=== PATIENT | male | born 1990 | race Caucasian/White ===

== ENCOUNTER 2020-09-16 16:24 | Outpatient (REF) | payer OTHER, SELFPAY ==
--- NOTE | ~2020-09-16 | XR_ITS ---
EXAMINATION: XR ANKLE, LEFT XR FOOT, LEFT CLINICAL INFORMATION: M77.52 - Other enthesopathy of left foot and ankle. COMPARISON: None. TECHNIQUE: 2 views left ankle, 2 views left foot, and a single combined lateral view of both ankle and foot in large [id number] are obtained. There are a total of 5 views. FINDINGS: The left ankle shows no fracture, dislocation or destructive process. The malleoli are intact and the ankle mortise is symmetric. No visible ankle capsular effusion. The retrocalcaneal recess is preserved. There are borderline posterior and plantar calcaneal spurs. Subtalar joint not well visualized, likely related to positioning. The midfoot and forefoot are unremarkable. There is no fracture, dislocation or arthropathy. XR/XR foot LT min 3V IMPRESSION: 1. Borderline posterior and plantar calcaneal spurs. 2. No fracture or destructive process. No focal joint narrowing or erosive change.
--- NOTE | ~2020-09-16 | XR_ITS ---
EXAMINATION: XR ANKLE, LEFT XR FOOT, LEFT CLINICAL INFORMATION: M77.52 - Other enthesopathy of left foot and ankle. COMPARISON: None. TECHNIQUE: 2 views left ankle, 2 views left foot, and a single combined lateral view of both ankle and foot in large [id number] are obtained. There are a total of 5 views. FINDINGS: The left ankle shows no fracture, dislocation or destructive process. The malleoli are intact and the ankle mortise is symmetric. No visible ankle capsular effusion. The retrocalcaneal recess is preserved. There are borderline posterior and plantar calcaneal spurs. Subtalar joint not well visualized, likely related to positioning. The midfoot and forefoot are unremarkable. There is no fracture, dislocation or arthropathy. XR/XR ankle LT 2V IMPRESSION: 1. Borderline posterior and plantar calcaneal spurs. 2. No fracture or destructive process. No focal joint narrowing or erosive change.
== END 2020-09-16 16:25 | disposition home or self-care (01) ==
LOC: HO.XRAY 16:24
PROVIDERS: PCP Hospitalist; Visit Provider Hospitalist
DX: M77.52 Other enthesopathy of left foot and ankle (principal)
CPT/HCPCS: 73600; 73630

== ENCOUNTER 2021-03-11 13:02 | Outpatient (REF) | payer OTHER, SELFPAY ==
--- NOTE | ~2021-03-11 | XR_ITS ---
EXAMINATION: XR KNEE, RIGHT CLINICAL INFORMATION: Pain COMPARISON: None TECHNIQUE: Four views of the right knee. FINDINGS: There is no evidence of acute fracture or dislocation of the right knee. No effusion is seen. Joint spaces are maintained. XR/XR knee RT 4V IMPRESSION: No significant bony abnormality of the right knee. No right knee effusion.
== END 2021-03-11 13:03 | disposition home or self-care (01) ==
LOC: HO.HMGCX 13:02
PROVIDERS: PCP Hospitalist; Visit Provider Hospitalist
DX: M25.561 Pain in right knee (principal)
CPT/HCPCS: 73564

== ENCOUNTER 2021-05-31 10:38 | Outpatient (REF) | payer OTHER, SELFPAY ==
[2021-05-31 11:31] LABS: MANUAL DIFF FLAG NO
[2021-05-31 11:41] LABS: Basophils Percent Auto 0.5 % (0-2); Eosinophils Absolute Auto 0.2 X10*3/uL (0.0-0.4); Eosinophils Percent Auto 2.8 % (0-4); Hemoglobin 15.9 g/dl (14.0-18.0); Imm Gran Abs Auto 0.02 X10*3/uL (0.00-0.03); Imm Gran Pct Auto 0.3 % (0.0-0.4); Lymphocytes Absolute Auto 1.4 X10*3/uL (1.2-4.9); Mean Corpuscular HGB Conc 33.8 g/dl (31.0-36.0); Mean Corpuscular Volume 88.7 fL (80-98); Mean Platelet Volume 10.4 fL (9.4-12.4); Monocytes Absolute Auto 0.4 X10*3/uL (0.1-1.2); Monocytes Percent Auto 6.6 % (2-11); Neutrophils Absolute Auto 4.5 X10*3/uL (2.0-8.3); Neutrophils Percent Auto 68.8 % (45-73); Platelet Count 207 X10*3/uL (160-400); Red Cell Distribution Width 13.4 % (11.0-16.0); White Blood Count 6.5 X10*3/uL (4.8-10.8)
[2021-05-31 12:18] LABS: Alanine Aminotransferase 39 U/L (0-40); Albumin Level 4.4 g/dL (3.5-5.0); Alkaline Phosphatase 95 U/L (39-117); Anion Gap 10 (12-20); Aspartate Amino Transferase 24 U/L (5-37); Blood Urea Nitrogen 12 mg/dL (9-16); Calcium 9.3 mg/dL (8.4-10.2); Carbon Dioxide 27 mmol/L (22-29); Chloride 105 mmol/L (96-108); Estimated Glomerular Filt Rate > 60; Glucose Random 95 mg/dL (60-115); Iron 123 mcg/dL (45-160); Percent Iron Saturation 41 % (15-50); Potassium 4.2 mmol/L (3.3-5.1); Sodium 138 mmol/L (135-145); Total Iron Binding Capacity 300 mcg/dL (228-428); Total Protein 6.9 g/dL (6.5-8.0); Unsaturated Iron Binding 177 ug/dL
[2021-05-31 12:26] LABS: Ferritin 147 ng/mL (20-250); Vitamin D 25-OH Total 30.6 ng/mL (>30)
[2021-05-31 12:42] LABS: Folate 8.5 ng/mL (> or = 4.0); Vitamin B12 537 pg/mL (200-900)
[2021-06-01 14:31] LABS: Calcium (PTHI) 9.3 mg/dL (8.6-10.3); PTHI 72 pg/mL (14-64)
[2021-06-04 17:33] LABS: Alpha-Tocopherol 8.6 mg/L (5.7-19.9); Beta-Gamma Tocopherol <1.0 mg/L (<=4.3)
[2021-06-05 00:51] LABS: Vitamin A 47 mcg/dL (38-98)
[2021-06-05 11:10] LABS: Vitamin B1 14 nmol/L (8-30)
[2021-06-05 19:47] LABS: Vitamin K1 442 pg/mL (130-1500)
== END 2021-05-31 10:39 | disposition home or self-care (01) ==
LOC: HO.WFDLDS 10:38
PROVIDERS: Physician Assistant Medical; Visit Provider Hospitalist
DX: K21.9 Gastro-esophageal reflux disease without esophagitis (principal); K90.9 Intestinal malabsorption, unspecified; Z98.0 Intestinal bypass and anastomosis status
CPT/HCPCS: 36415; 80053; 82306; 82607; 82728; 82746; 83540; 83970; 84134; 84425; 84446; 84590; 84597; 85025

== ENCOUNTER 2021-09-08 11:17 | Outpatient (REF) | payer OTHER, SELFPAY ==
[2021-09-08 14:31] LABS: Cholesterol 142 mg/dL; HDL Cholesterol 45 mg/dL; LDL Cholesterol Calculated 85 mg/dl; Triglycerides 64 mg/dL
[2021-09-08 14:51] LABS: TSH reflex Free T4 0.72 uIU/mL (0.32-4.0)
[2021-09-08 15:04] LABS: Barbiturates, Urine Not Detected (Not Detect); Benzodiazepines Screen Urine Not Detected (Not Detect); Cannabinoid Screen Urine Not Detected (Not Detect); Cocaine Screen Urine Not Detected (Not Detect); Fentanyl, urine Not Detected (Not Detect); Opiate Screen Urine Not Detected (Not Detect); Phencyclidine Screen Urine Not Detected (Not Detect)
[2021-09-08 15:07] LABS: Amphetamine Screen Urine Not Detected (Not Detect)
[2021-09-11 19:56] LABS: TS Negative Control Passed; TS Panel A 0; TS Panel B 0; TS Positive Control Passed; TSpotTB Negative (Negative)
== END 2021-09-08 11:18 | disposition home or self-care (01) ==
LOC: HO.WFDLDS 11:17
PROVIDERS: Visit Provider Hospitalist
DX: Z00.00 Encounter for general adult medical examination without abnormal findings (principal)
CPT/HCPCS: 36415; 80061; 80307; 84443; 86481

== ENCOUNTER 2023-02-20 09:42 | Outpatient (REF) | payer OTHER, SELFPAY ==
[2023-02-20 10:00] LABS: MANUAL DIFF FLAG NO
[2023-02-20 10:36] LABS: Basophils Percent Auto 0.7 % (0-2); Eosinophils Absolute Auto 0.3 X10*3/uL (0.0-0.4); Eosinophils Percent Auto 4.9 % (0-4); Hematocrit 43.8 % (42.0-52.0); Imm Gran Abs Auto 0.01 X10*3/uL (0.00-0.03); Imm Gran Pct Auto 0.2 % (0.0-0.4); Lymphocytes Absolute Auto 1.8 X10*3/uL (1.2-4.9); Mean Corpuscular HGB Conc 34.2 g/dl (31.0-36.0); Mean Corpuscular Volume 87.6 fL (80.0-98.0); Mean Platelet Volume 10.6 fL (9.4-12.4); Monocytes Absolute Auto 0.5 X10*3/uL (0.1-1.2); Monocytes Percent Auto 7.3 % (2-11); Neutrophils Absolute Auto 3.6 x10*3/uL (2.0-8.3); Neutrophils Percent Auto 57.9 % (45-73); Platelet Count 216 X10*3/uL (160-400); White Blood Count 6.1 X10*3/uL (4.8-10.8)
[2023-02-20 13:04] LABS: Alanine Aminotransferase 70 U/L (0-40); Albumin Level 4.2 g/dL (3.5-5.0); Alkaline Phosphatase 76 U/L (39-117); Anion Gap 12 (12-20); Aspartate Amino Transferase 40 U/L (5-37); Blood Urea Nitrogen 14 mg/dL (9-16); Calcium 9.7 mg/dL (8.4-10.2); Carbon Dioxide 27 mmol/L (22-29); Chloride 106 mmol/L (96-108); Cholesterol 136 mg/dL; Estimated Glomerular Filt Rate > 60; Glucose Fasting 86 mg/dL (60-99); HDL Cholesterol 50 mg/dL; LDL Cholesterol Calculated 77 mg/dl; Potassium 3.9 mmol/L (3.3-5.1); Sodium 141 mmol/L (135-145); Total Protein 6.8 g/dL (6.5-8.0); Triglycerides 45 mg/dL
[2023-02-20 13:22] LABS: TSH reflex Free T4 0.94 uIU/mL (0.32-4.0)
== END 2023-02-20 09:43 | disposition home or self-care (01) ==
LOC: HO.LAB 09:42
PROVIDERS: PCP Hospitalist; Visit Provider Hospitalist
DX: E66.3 Overweight (principal); Z98.84 Bariatric surgery status
CPT/HCPCS: 36415; 80053; 80061; 84443; 85025

== ENCOUNTER 2023-03-02 11:51 | Outpatient (AMB) | payer OTHER, SELFPAY ==
[2023-03-02 12:00] VITALS: BP 108/62; PULSE 94; RESP 12; TEMP 36.5; O2SAT 98; BMI 29.6
--- NOTE | 2023-03-02 12:00 | MHC.PC.OV ---
Vital Signs 03/02/23 12:00 Height 5 ft 9 in Weight 200 lb 6 oz BMI 29.6 BP 108/62 Blood Pressure Location Lt brachial Position Sitting Respiration 12 Pulse 94 Pulse Source Pulse Oximeter Temp 97.7 F Temp Source Temporal Artery Scan Pulse Oximetry (%) 98 Oxygen Delivery Method Room Air Intake Visit Reasons: Left wrist/arm pain Intake Note: Patient states that the pain in wrist and arm started last winter when he has a snowboarding accident. Patient states that he has migraines that have lasted as long as a week and a half. Patient states that during the headaches he feels pressure in forehead. Patient states that he still has pain in his left ankle. Pump Tender Required: No Accompanied by: Self / Same As Patient Allergies pollen extracts Allergy (Mild, Verified 03/02/23 12:29) congestion Hot dogs Allergy (Severe, Uncoded 03/02/23 12:29) throat swelling Medication List - Last Reconciled 03/02/23 by Ivan Canonn CNP acetaminophen (Tylenol) 325 mg PO QID PRN biotin 5 mg PO DAILY calcium carbonate (Calcium 500) 500 mg PO DAILY cholecalciferol (vitamin D3) 250 mcg PO DAILY cyanocobalamin (vitamin B-12) (Vitamin B-12) 500 mcg PO DAILY ferrous sulfate 325 mg PO DAILY multivitamin 1 tab PO DAILY omega 1-ydp-mnm-fish oil 300-1,000 mg (Fish Oil) 3 caps PO DAILY Tobacco use date assessed: 11/22/22 Dental Screening Dental Screen Date: 03/02/23 Did you have a dental visit in the last 12 months?: Yes Did you have a dental problem in the last 6 months where you did not have access to dental care?: No Was dental information given to patient?: Patient has dentist HPI HPI Comments History of Present Illness Details 32-year-old male presents with complaints of pain to his entire left arm - from shoulder to wrist pain. He states that his symptoms started after a snowboarding accident in September 2022. He was evaluated by his PCP. His symptoms improved, however, he continues to to feel pain with heavy lifting. He notes that he lifts weights at the gym. The pain is refractory to Tylenol. He does not take NSAIDs d/o h/o gastric bypass. No tingling, numbness, or loss of sensation. He also reports chronic, intermittent pain to his left ankle x-ray of left ankle in 2020 revealed Borderline posterior and plantar calcaneal spurs. PFSH Surgical History Hx of gastric bypass No pertinent past surgical history Family History Father Diabetes CVD (cardiovascular disease) Mother Chronic mental illness Asthma Cancer Other Mental health disorder Social History Housing: House Alcohol intake: never Patient Tobacco Use Status: Never used Tobacco e-Cigarette/Vaping Use: Never Used Substance Use Type: Marijuana service: No Current occupational status: employed Current occupation: Business Services Specialist Sales Cognitive needs: No Hearing needs: No Vision needs: No Questionnaire Thrive Questionnaire Date Thrive assessed: 03/02/23 I am a: Patient What is your living situation today?: I have a steady place to live Within the past 12 months, did the food you bought not last and you didn't have the money to get more?: Never true Within the past 12 months, did you worry whether your food would run out before you got money to buy more?: Never true Do you have trouble paying for medicines?: No Do you have trouble getting transportation to medical appointments?: No Do you have trouble paying your heating and electricity bill?: No Do you have trouble taking care of your child, family member or friend?: No Do you have trouble with day-to-day activities such as bathing, preparing meals, shopping, managing finances, etc.?: No Are you currently unemployed and looking for a job?: No Are you interested in more education?: No Please select the resources that you would like help with: None Currently or been in a relationship where the following occur: no concerns reported FOSTER-7 AMB Questionnaire FOSTER-7 Date FOSTER - 7 assessed: 09/08/21 Source: Developed by Drs. Sharif Gonzalez, Shannon Lopez, Daren Sofia and colleagues, with an educational jessica from [employer]. Review of Systems Const Details: Const Denies chills, Denies fatigue, Denies fever(s), Denies headache(s) and Denies weakness ENT Reports as per HPI Card Denies chest pain, Denies lightheadedness, Denies dyspnea and Denies other (Palpitations) Resp Denies cough, Denies dyspnea, Denies wheezing and Denies other ( shortness of breath) GI Denies abdominal pain, Denies melena, Denies hematochezia, Denies change in bowel habits, Denies dyspepsia and Denies nausea Denies hematuria and Denies dysuria Musc Reports left arm/wrist pain, Denies abnormal gait, Denies numbness and Denies tingling Skin/Breast Denies rash, Denies unusual bruising and Denies wounds Neuro Denies abnormal gait, Denies dizziness, Denies headache(s), Denies memory loss, Denies numbness, Denies Sensory deficit (Neuro), Denies tingling and Denies weakness Psych Denies anxiety and Denies depression Endo Denies fatigue Aller/Immun Denies wheezing Physical exam (Primary Care) Vital Signs: Last Vital Signs Temp 97.7 F 03/02/23 12:00 Pulse 94 03/02/23 12:00 Resp 12 03/02/23 12:00 BP 108/62 03/02/23 12:00 Pulse Ox 98 03/02/23 12:00 Oxygen Delivery Method Room Air 03/02/23 12:00 BMI result Body Mass Index 29.6 Tobacco/Smoking Status: Tobacco use Status Tobacco use date assessed 11/22/22 03/02/23 12:15 Patient Tobacco Use Status Never used Tobacco 03/02/23 12:15 e-Cigarette/Vaping Use Never Used 03/02/23 12:15 Thrive Assessment: Date of Thrive Assessment Date Thrive assessed 03/02/23 03/02/23 12:15 Currently or been in a relationship where the following occur: no concerns reported Const Other: General: no acute distress and well developed Nutritional Appearance: well nourished Orientation/consciousness: patient oriented x3 HENMT Head: Yes normocephalic and Yes atraumatic Eyes General: appearance normal, both eyes and all related structures Pupils: Equal, round and reactive pupils present EOM: EOMs intact bilaterally Resp Effort & Inspection: normal respiratory effort Auscultation: clear to auscultation bilaterally Cardio Rate: regular rate Rhythm: regular rhythm Heart sounds: S1 normal heart sound present, S2 normal heart sound present, no gallops, no murmurs and no rubs GI Palpation (GI): No Abdominal aortic bruit present, Soft to palpation, nontender, No hepatosplenomegaly present and No Rebound tenderness present Auscultation: normal bowel sounds General: Yes no CVA tenderness Back/Spine/Pelvis Back: no CVA tenderness Cervical Spine: cervical ROM normal and No Cervical spine tenderness Thoracic/Lumbar Spine: thoraco-lumbar ROM normal, No pain with thoraco-lumbar ROM, No thoracic spinal tenderness and No lumbar spinal tenderness Extrem General: Yes normal to inspection, No edema and No calf tenderness Tenderness with range of motion of the left shoulder, no overt injury or trauma Skin General: warm and dry. Normal skin color. Normal skin turgor Lesions: no lesions Rashes: no rashes Trauma: no lacerations or abrasions Wounds: no wounds Nails: normal Neuro General: patient oriented x3, gait normal and no focal neuro deficit Cranial nerves: Yes Equal, round and reactive pupils present Cognition (Neuro): normal cognition Gait exam (Neuro): Normal gait present Sensory Exam: No Sensory deficit (Neuro) Psych Affect: normal affect Assessment and Plan Assessment & Plan (1) Left arm pain: Code(s): M79.602 - Pain in left arm Plan: Reports left arm pain, refractory to Tylenol Tenderness with ROM of the left arm Physical therapy referral made Take Tylenol for pain or discomfort Warm/cool compresses encouraged Follow-up with worsening or new symptoms Verbalized understanding and agreed with treatment plan. (2) Left foot pain: Code(s): M79.672 - Pain in left foot Plan: Reports chronic, intermittent pain to his left ankle x-ray of left ankle in 2020 revealed Borderline posterior and plantar calcaneal spurs Tylenol as needed for pain or discomfort Follow-up with worsening or new symptoms. May refer to PT or podiatry Verbalized understanding and agreed with the treatment plan. Orders: Orders PT Evaluation and Treatment Today M79.602 - Pain in left arm Coding Level of Care Code Est Pt Level 3 (94136) Diagnoses Left arm pain M79.602 Left foot pain M79.672 Time Spent (min) 25
== END 2023-03-02 12:47 | disposition home or self-care (01) ==
PROVIDERS: PCP Hospitalist; Visit Provider Nurse Practitioner Family
DX: M79.602 Pain in left arm (principal); M79.672 Pain in left foot
CPT/HCPCS: 99213

== ENCOUNTER 2023-04-13 08:00 | Outpatient (RCR) | payer OTHER, SELFPAY ==
--- NOTE | 2023-03-29 08:52 | MHC.PT.EP ---
[facility] [place] Office [place] Office [place] Office [address] Noe Sales [address] [phone] F: [phone] F: [phone] F: [phone] F: [phone] Physical Therapy Plan of Care Date of Evaluation: Date of Surgery: Diagnosis: LEFT ARM PAIN Assessment: 32 YO MALE REF TO PT W RESIDUAL LEFT SH-> WRIST PINS AND NEEDLES S/P FALLING AND LANDING ON Lt SIDE W Lt UE BEHIND HIM WHILE SNOWBOARDING IN 09/2022. 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 OBJECTIVE FINDINGS: DECR POSTURAL AWARENESS W ELEV Lt CLAVICLE, MILD CERV ROM LIMITATIONS, (+) SORENESS AT END ROM Lt SH, STRENGTH DEFICITS IN POST RC/ SCAP AND Lt LAND CLASSIFIER, MILD SUPRASPINATUS TESTS Lt SH, AND FLUCTUATING PINS AND NEEDLES IN Lt SH-> WRIST (Pt DENIES SXS IN HIS Lt HAND OR C-SPINE). FUNCTIONALLY, HE IS LIMITED W WORKING OUT, LIFTING OBJECTS/ GROCERIES/ LAUNDRY, AND SLEEPING. WE WILL MONITOR HIS CERV REGION WE ADDRESS SOFT TISSUE/POSTURE/ SCAP STAB SX ORIGIN MAY BE MORE PROXIMAL . THE Pt IS RIGHT HAND DOMINANT Frequency and Duration: The patient will be seen 2 x WK x 5 WKS Short Term Goals: *Pt INDEP SELF CORRECT POSTURE *DECR Lt UE PINS AND NEEDLES SENSATION BY 75% AND Lt UE PAIN TO 2-3/10 W ADLs *Pt DEMON WFL CERV AND END Lt SH AROM *REDUCE TISSUE TENSION IN Lt > Rt CERV REGION Half-Way Goals: *Pt INDEP W HEP AND SELF-SX MGMT TECHN *Pt RESUME REG ADLS AND CAUTIOUS RE-ENTRY TO THE GYM EVIDENT W IMPROVED SPADI (AT EVAL 59/130) *LEFT UE STRENGTH (LAND CLASSIFIER) COMPARABLE TO Rt UE Treatment Plan: Modalities to reduce pain, spasms and effusion. Manual therapy to restore motion and function. Therapeutic exercise to improve strength and flexibility. Neuromuscular re-education for posture and balance. Therapeutic activities to return to functional activities of daily living. Electronically signed by: SARAHI GAO,PT Please sign and return to therapist. Thank you for your referral.
--- NOTE | 2023-06-07 07:49 | MHC.PT.DC ---
[facility] [place] Office [place] Office [place] Office [address] Noe Sales [address] [phone] F: [phone] F: [phone] F: [phone] F: [phone] Physical Therapy Discharge Report Diagnosis: LEFT ARM PAIN Date of Surgery: Date of Evaluation: 03/29/23 Date of Discharge: 06/07/23 Treatments to Date: 4 Cancellations to Date: 2 No Shows to Date: 4 Discharge Status: Visit Non-compliance Discharge Summary: MARTIN MADE SOME PROGRESS IN PT, REDUCED TENSION AND PAIN IN HIS CERV PS/ SUBOCCIP AREA > HE CONT TO BENEFIT FROM EDUC RE POSTURE W CELL PHONE USAGE, ESPEC WHILE SEATED TO REDUCE POSTERIOR CHAIN TENSION- HE HAS A HEP. A FORMAL REASSESSMENT WAS NOT PERF DUE TO POOR ATTENDANCE FOR LAST FEW SCHED PT APPTS NOTED ABOVE. Electronically signed by: SARAHI GAO,PT Please sign and return to therapist. Thank you for your referral.
== END 2023-06-07 07:50 | disposition home or self-care (01) ==
LOC: HO.PT 08:00
PROVIDERS: PCP Hospitalist; Visit Provider Nurse Practitioner Family
DX: M79.602 Pain in left arm (principal)
CPT/HCPCS: 97110; 97140; 97162

== ENCOUNTER 2023-06-04 00:50 | Emergency (ER) | payer OTHER, SELFPAY ==
--- NOTE | ~2023-06-04 | CT_ITS ---
EXAMINATION: CT ABDOMEN AND PELVIS WITH CONTRAST CLINICAL INFORMATION: Elevated lipase and LFTs, gastric bypass COMPARISON: None available. TECHNIQUE: Multidetector volumetric images were obtained from the superior aspect of the liver through the pubic symphysis following administration 85 mL of Omnipaque 350 intravenous contrast. Sagittal and coronal reformatted images were obtained on the technologist's workstation. Oral contrast: Yes This CT examination was performed using dose optimization techniques as appropriate, variously including the following: *Automated exposure control *Adjustment of mA and/or kV according to patient size (this includes techniques or standardized protocols for targeted exams where dose is matched to indication/reason for exam; i.e. extremities or head) *Use of iterative reconstruction technique DLP: 662 mGy-cm FINDINGS: LUNG BASES: The visualized lung bases are unremarkable. LIVER, GALLBLADDER, AND BILIARY TREE: The liver is normal in size, shape, and attenuation. No focal hepatic lesion or biliary ductal dilatation is present. The gallbladder is unremarkable with no evidence of radiopaque gallstones, gallbladder wall thickening, or obvious pericholecystic inflammatory changes. PANCREAS: Unremarkable. SPLEEN: Unremarkable. ADRENAL GLANDS: Unremarkable. KIDNEYS AND URETERS: Bilateral nephrograms are symmetric. No hydronephrosis or obstructing calculus identified. BLADDER: Minimally distended and grossly unremarkable. GASTROINTESTINAL TRACT: Postoperative changes of the stomach and proximal small bowel consistent with history of gastric bypass surgery. Oral contrast material extends into the distal small bowel. No evidence of bowel obstruction or significant bowel wall thickening. The appendix is unremarkable. No free fluid or free air is seen. ABDOMINAL WALL: No significant hernia is appreciated. LYMPH NODES: Normal. VASCULAR: Unremarkable. PELVIC VISCERA: Unremarkable. OSSEOUS STRUCTURES: Unremarkable. CT/CT abdomen pelvis w IV con IMPRESSION: No acute findings identified in the abdomen/pelvis. Postoperative changes of the stomach and proximal small bowel consistent with history of gastric bypass surgery.
[2023-06-04 01:00] VITALS: BP 136/68; PULSE 61; RESP 16; TEMP 36.2; O2SAT 100; BMI 30.5
[2023-06-04 01:21] LABS: MANUAL DIFF FLAG NO
[2023-06-04 01:24] LABS: Basophils Percent Auto 0.3 % (0-2); Eosinophils Absolute Auto 0.2 X10*3/uL (0.0-0.4); Eosinophils Percent Auto 2.3 % (0-4); Hematocrit 45.6 % (42.0-52.0); Imm Gran Abs Auto 0.02 X10*3/uL (0.00-0.03); Imm Gran Pct Auto 0.2 % (0.0-0.4); Lymphocytes Absolute Auto 2.6 X10*3/uL (1.2-4.9); Lymphocytes Percent Auto 29.2 % (20-40); Mean Corpuscular HGB Conc 35.1 g/dl (31.0-36.0); Mean Corpuscular Hemoglobin 30.2 pg (27.0-33.0); Mean Corpuscular Volume 86.2 fL (80.0-98.0); Mean Platelet Volume 10.3 fL (9.4-12.4); Monocytes Absolute Auto 0.6 X10*3/uL (0.1-1.2); Monocytes Percent Auto 6.7 % (2-11); Neutrophils Absolute Auto 5.5 x10*3/uL (2.0-8.3); Neutrophils Percent Auto 61.3 % (45-73); Platelet Count 231 X10*3/uL (160-400); Red Blood Count 5.29 X10*6/uL (4.60-5.80); Red Cell Distribution Width 13.1 % (11.0-16.0)
[2023-06-04 01:25] LABS: Appearance Urine Clear; Color Urine Yellow; Glucose Urine UA Negative (Negative); Leukocyte Esterase Urine Negative (Negative); Nitrite Urine Negative (Negative); UMIC TRIGGER UACC YES; Urine Blood Trace (Negative); Urine Ketones Trace mg/dL (Negative); Urine Protein Negative (Neg-Trace)
--- NOTE | 2023-06-04 01:26 | PC.NURSE ---
Pt ca&ox4, no signs of distress. Pt ambulates with a steady gait. Pt reports 8/10 back pain and 9/10 abdm/rib area pressure/pain bilaterally. Pt reports he had a normal bowel movement today. Provider in with pt. Plan of care ongoing.
[2023-06-04 01:30] LABS: Bacteria Urine None Seen (None Seen); Hyaline Casts Urine 0-2 /LPF (0-2); Squamous Epithelial Cell Urine 0-2 /HPF (0-2); WBC Urine 0-5 /HPF (0-5)
[2023-06-04] MEDS: Magnesium Hydrox/Alum Hydrox 30 ML ORAL.SUSP PO (01:35)
[2023-06-04] MEDS: Lidocaine HCl Viscous 2 % 15 ML SOLUTION MUCOUS MEM (01:35)
[2023-06-04] MEDS: PHENobarb/Hyoscy/Atropine/Scop 10 ML ELIXIR PO (01:35)
[2023-06-04 01:42] LABS: Alanine Aminotransferase 106 U/L (0-40); Albumin Level 4.5 g/dL (3.5-5.0); Alkaline Phosphatase 87 U/L (39-117); Anion Gap 14 (12-20); Aspartate Amino Transferase 104 U/L (5-37); Bilirubin Direct 0.3 mg/dL (0.0-0.5); Bilirubin Total 0.9 mg/dL (0.0-1.0); Blood Urea Nitrogen 12 mg/dL (9-16); Calcium 9.6 mg/dL (8.4-10.2); Carbon Dioxide 22 mmol/L (22-29); Chloride 106 mmol/L (96-108); Creatinine Clr Calc Pharmacy 131.7; Estimated Glomerular Filt Rate > 60; Glucose Random 119 mg/dL (60-115); Potassium 4.2 mmol/L (3.3-5.1); Sodium 138 mmol/L (135-145); Total Protein 7.4 g/dL (6.5-8.0)
[2023-06-04 01:53] LABS: Lipase 256 U/L (8-78)
--- NOTE | 2023-06-04 02:12 | ED_ITS ---
HPI - Abdominal Pain General Chief Complaint: Abdominal Pain Stated Complaint: Stomach Pain Time Seen by Provider: 06/04/23 01:13 Source: patient Mode of arrival: ambulatory Limitations: no limitations History of Present Illness HPI narrative: Patient with gastric bypass 2 years ago now with epigastric pain going into his back Related Data Previous Rx's Medication Instructions Recorded pantoprazole 40 mg tablet,delayed 40 mg PO DAILY #20 tabs 06/04/23 release (Protonix) Allergies Allergy/AdvReac Type Severity Reaction Status Date / Time No Known Allergies Allergy Verified 06/04/23 01:05 Review of Systems Review of Systems Yes all other systems are reviewed and are negative Denies Sensory deficit (Neuro) [facility] Social History Social History Smoked in Last 30 Days: No Use of substances other than those prescribed or required for medical reasons: No Advance Directives: No Advance Directives Information Provided: No Physical Exam ED Vital Signs: Vital Signs - 24 hr 06/04/23 01:00 Temperature 97.2 F Pulse Rate 61 Respiratory Rate 16 Blood Pressure 136/68 Pulse Oximetry 100 Oxygen Delivery Method Room Air BMI result Body Mass Index 30.5 Const General: healthy appearing Nutritional Appearance: average body habitus Orientation/consciousness: oriented to person and patient oriented x3 Limitations: no limitations HENMT Head: Yes normal to inspection Ears: external ears normal General nose exam: Normal external nose present Mouth: Normal oral and palatal mucosa present and oropharynx normal Throat: Yes posterior oropharynx normal Eyes General: appearance normal, both eyes and all related structures Neck Neck: Yes normal visual inspection Chest Chest palpation & inspection: normal inspection of the chest Resp Auscultation: clear to auscultation bilaterally Cardio Jugular venous distension: no JVD Rate: regular rate Rhythm: regular rhythm Heart sounds: S1 normal heart sound present and S2 normal heart sound present GI Other: mild epigastric tenderness Inspection: Yes normal to inspection Palpation (GI): No hepatosplenomegaly present Auscultation: normal bowel sounds General: Yes no CVA tenderness Back/Spine/Pelvis Back: no CVA tenderness Skin General skin exam: no rashes or lesions noted Neuro General: oriented to person and patient oriented x3 Cranial nerves: Yes CN's II-XII intact bilaterally Motor exam (neuro): 5/5 motor strength present throughout Sensory Exam: No Sensory deficit (Neuro) Extrem General: Yes normal to inspection Psych Appearance: grossly normal Course Reevaluation(s) Reevaluation #1: slight elevation of lfts with slight elevation of lipase. CT showed no evidence of pancreatitis or gall stones Time: 06:21 Medical Decision Making Differential Diagnosis Differential Diagnoses: The differential diagnosis associated with the presentation includes (pancreatitis, gallstones, anastomisis dehiscence, abdominal infection were all considered) Admission/Observation Consideration of admission/observation: Escalation of care including admission/observation considered (upon arrival patient was considered for admission) Lab Data MDM Lab Attestation statement: I reviewed the patient's lab results. (slight elevation of lipase and lfts) 06/04/23 01:16 06/04/23 01:16 Labs: Lab Results 06/04/23 Range/Units 01:16 WBC 9.0 (4.8-10.8) X10*3/uL RBC 5.29 (4.60-5.80) X10*6/uL Hgb 16.0 (14.0-18.0) g/dl Hct 45.6 (42.0-52.0) % MCV 86.2 (80.0-98.0) fL MCH 30.2 (27.0-33.0) pg MCHC 35.1 (31.0-36.0) g/dl RDW 13.1 (11.0-16.0) % Plt Count 231 (160-400) X10*3/uL MPV 10.3 (9.4-12.4) fL Immature Gran % (Auto) 0.2 (0.0-0.4) % Neut % (Auto) 61.3 (45-73) % Lymph % (Auto) 29.2 (20-40) % [place] % (Auto) 6.7 (2-11) % Eos % (Auto) 2.3 (0-4) % Baso % (Auto) 0.3 (0-2) % Lymph # (Auto) 2.6 (1.2-4.9) X10*3/uL [place] # (Auto) 0.6 (0.1-1.2) X10*3/uL Eos # (Auto) 0.2 (0.0-0.4) X10*3/uL Baso # (Auto) 0.0 (0.0-0.2) X10*3/uL Abs Immat Gran (auto) 0.02 (0.00-0.03) X10*3/uL Absolute Neuts (auto) 5.5 (2.0-8.3) x10*3/uL Absolute Nucleated RBC 0.000 (0.0-0.012) X10*3/uL Nucleated RBC % (auto) 0.0 (0.0-0.2) /100WBC Sodium 138 (135-145) mmol/L Potassium 4.2 (3.3-5.1) mmol/L Chloride 106 (96-108) mmol/L Carbon Dioxide 22 (22-29) mmol/L Anion Gap 14 (12-20) BUN 12 (9-16) mg/dL Creatinine 0.91 (0.5-1.4) mg/dL Estim Creat Clear Calc 131.7 Estimated GFR > 60 Random Glucose 119 H (60-115) mg/dL Calcium 9.6 (8.4-10.2) mg/dL Total Bilirubin 0.9 (0.0-1.0) mg/dL Direct Bilirubin 0.3 (0.0-0.5) mg/dL AST 104 H (5-37) U/L ALT 106 H (0-40) U/L Alkaline Phosphatase 87 (39-117) U/L Total Protein 7.4 (6.5-8.0) g/dL Albumin 4.5 (3.5-5.0) g/dL Lipase 256 H (8-78) U/L Urine Color Yellow Urine Appearance Clear Urine pH 6.0 (5.0-9.0) Ur Specific [place] 1.020 (1.005-1.025) Urine Protein Negative (Neg-Trace) mg/dL Urine Glucose (UA) Negative (Negative) mg/dL Urine Ketones Trace (Negative) mg/dL Urine Blood Trace H (Negative) Urine Nitrite Negative (Negative) Ur Leukocyte Esterase Negative (Negative) Urine RBC 6-10 H (0-2) /HPF Urine WBC 0-5 (0-5) /HPF Ur Squamous Epith Cells 0-2 (0-2) /HPF Urine Bacteria None Seen (None Seen) Hyaline Casts 0-2 (0-2) /LPF Independent Interpretation I performed an independent interpretation of an: Ultrasound (bedside US showed no gallstones) and CT Scan (no dominga pancreatic inflammation) Radiology Impression Discussion of test interpretation with radiology: I have reviewed the radiologist's reading. (I have reviewed the CT and agree) Prescription Management I considered prescription management with: Pain Medication (narcotic pain medication was considered but the patients pain has improved significantly) Medications Administered Discontinued Medications Generic Name Dose Route Start Last Admin Trade Name Morganq PRN Reason Stop Dose Admin Al Hydroxide/Mg Hydroxide 30 ml 06/04/23 01:26 06/04/23 01:35 Magnesium Hydrox/Alum Hydrox 30 Ml Oral.Susp PO 06/04/23 01:27 30 ml ONCE ONE Administration Belladonna Alkaloids/Phenobarbital 10 ml 06/04/23 01:26 06/04/23 01:35 Phenobarb/Hyoscy/Atropine/Scop 10 Ml Elixir PO 06/04/23 01:27 10 ml ONCE ONE Administration Diatrizoate Meglum/Diatrizoate Sod 30 ml 06/04/23 04:44 06/04/23 04:44 Diatrizoate Meglumine, Sodium 30 Ml Solution PO 06/04/23 04:45 30 ml ONCE ONE Administration Sodium Chloride 500 mls @ 250 mls/hr 06/04/23 02:15 06/04/23 04:56 Ns IVCONT 06/04/23 04:14 Infused .Q2H GUIDO Infusion Iohexol 85 ml 06/04/23 05:26 06/04/23 05:27 Iohexol 350 Mg/Ml 100 Ml Infus..Btl IV 06/04/23 05:27 85 ml ONCE ONE Administration Lidocaine HCl 15 ml 06/04/23 01:26 06/04/23 01:35 Lidocaine Hcl Viscous 2 % 15 Ml Solution MUCOUS MEM 06/04/23 01:27 15 ml ONCE ONE Administration Pantoprazole Sodium 40 mg 06/04/23 02:12 06/04/23 02:43 Pantoprazole Sodium 40 Mg/10 Ml Vial IVPUSH 06/04/23 02:13 40 mg ONCE ONE Administration Discharge Plan Discharge Clinical Impression: Gastritis and duodenitis, Pancreatitis Patient Disposition: Home, Self-Care Instructions: Gastritis (ED), Pancreatitis (ED) Prescriptions: New pantoprazole [Protonix] 40 mg tablet,delayed release (DR/EC) 40 mg PO DAILY Qty: 20 0RF Referrals: Physician,Unknown J [Primary Care Provider] - 5 days
[2023-06-04] MEDS: Pantoprazole Sodium 40 MG/10 ML VIAL IVPUSH (02:43)
[2023-06-04] MEDS: 0.9 % Sodium Chloride 500 ML 250 ML IVCONT (02:44)
--- NOTE | 2023-06-04 02:55 | PC.NURSE ---
Pt medicated per oct. CT with pt. IV fluids started. PLan of care ongoing.
[2023-06-04] MEDS: Diatrizoate Meglumine, Sodium 30 ML SOLUTION PO (04:44)
[2023-06-04] MEDS: iohexoL 350 MG/ML 100 ML INFUS..BTL 85 ML IV (05:27)
[2023-06-04 06:24] VITALS: BP 114/45; PULSE 55; RESP 16; TEMP 36.6; O2SAT 98
== END 2023-06-04 06:46 | disposition home or self-care (01) ==
PROVIDERS: Emergency Provider Emergency Medicine
DX: K29.70 Gastritis, unspecified, without bleeding (principal); K85.90 Acute pancreatitis without necrosis or infection, unspecified; R10.13 Epigastric pain; Z98.84 Bariatric surgery status; Z79.899 Other long term (current) drug therapy
CPT/HCPCS: 36415; 74177; 80048; 80076; 81001; 83690; 85025; 96361; 96374; 99284; Q9967

== ENCOUNTER 2023-06-09 15:29 | Outpatient (REF) | payer OTHER, SELFPAY ==
[2023-06-09 15:56] LABS: MANUAL DIFF FLAG NO
[2023-06-09 16:19] LABS: Basophils Absolute Auto 0.1 X10*3/uL (0.0-0.2); Basophils Percent Auto 0.6 % (0-2); Eosinophils Absolute Auto 0.3 X10*3/uL (0.0-0.4); Eosinophils Percent Auto 2.8 % (0-4); Hematocrit 46.4 % (42.0-52.0); Hemoglobin 16.3 g/dl (14.0-18.0); Imm Gran Abs Auto 0.04 X10*3/uL (0.00-0.03); Imm Gran Pct Auto 0.4 % (0.0-0.4); Lymphocytes Percent Auto 22.3 % (20-40); Mean Corpuscular HGB Conc 35.1 g/dl (31.0-36.0); Mean Corpuscular Hemoglobin 30.9 pg (27.0-33.0); Monocytes Absolute Auto 0.6 X10*3/uL (0.1-1.2); Monocytes Percent Auto 6.2 % (2-11); Neutrophils Percent Auto 67.7 % (45-73); Platelet Count 227 X10*3/uL (160-400); Red Blood Count 5.27 X10*6/uL (4.60-5.80); Red Cell Distribution Width 12.9 % (11.0-16.0); White Blood Count 8.9 X10*3/uL (4.8-10.8)
[2023-06-09 16:54] LABS: Alanine Aminotransferase 59 U/L (0-40); Albumin Level 4.5 g/dL (3.5-5.0); Alkaline Phosphatase 80 U/L (39-117); Anion Gap 11 (12-20); Aspartate Amino Transferase 36 U/L (5-37); Bilirubin Total 0.9 mg/dL (0.0-1.0); Blood Urea Nitrogen 17 mg/dL (9-16); Calcium 9.6 mg/dL (8.4-10.2); Carbon Dioxide 27 mmol/L (22-29); Chloride 105 mmol/L (96-108); Estimated Glomerular Filt Rate > 60; Glucose Random 93 mg/dL (60-115); Iron 154 mcg/dL (45-160); Percent Iron Saturation 46 % (15-50); Potassium 4.3 mmol/L (3.3-5.1); Sodium 139 mmol/L (135-145); Total Iron Binding Capacity 337 mcg/dL (228-428); Total Protein 7.3 g/dL (6.5-8.0); Unsaturated Iron Binding 183 ug/dL
[2023-06-09 17:11] LABS: Ferritin 42 ng/mL (20-250)
[2023-06-09 17:25] LABS: Vitamin D 25-OH Total 40.2 ng/mL (>30)
[2023-06-09 17:26] LABS: Folate > 20.0 ng/mL (> or = 4.0); Vitamin B12 544 pg/mL (200-900)
[2023-06-12 12:52] LABS: Calcium (PTHI) 9.9 mg/dL (8.6-10.3); PTHI 29 pg/mL (16-77)
[2023-06-13 17:54] LABS: Vitamin A 60 mcg/dL (38-98)
[2023-06-15 17:38] LABS: Vitamin B1 21 nmol/L (8-30)
== END 2023-06-09 15:30 | disposition home or self-care (01) ==
LOC: HO.LAB 15:29
PROVIDERS: PCP Nurse Practitioner Family; Visit Provider Surgery
DX: E55.9 Vitamin D deficiency, unspecified (principal); K90.9 Intestinal malabsorption, unspecified; Z98.84 Bariatric surgery status
CPT/HCPCS: 36415; 80053; 82306; 82607; 82728; 82746; 83540; 83970; 84134; 84425; 84590; 85025

== ENCOUNTER 2023-07-07 12:28 | Outpatient (AMB) | payer OTHER, SELFPAY ==
[2023-07-07 12:35] VITALS: BP 110/70; PULSE 71; RESP 16; O2SAT 97
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
== END 2023-07-07 13:16 | disposition home or self-care (01) ==
PROVIDERS: PCP Nurse Practitioner Family; Visit Provider Nurse Practitioner Family
DX: M25.551 Pain in right hip (principal); M25.552 Pain in left hip; M54.40 Lumbago with sciatica, unspecified side
CPT/HCPCS: 99213